=== PATIENT | female | born 1935 | race American Indian/Alaskan Native ===

== ENCOUNTER 2019-01-08 07:42 | Day surgery (SDC) | payer MEDICARE, MEDICAID | END 2019-01-08 12:32 | disposition home or self-care (01) | LOC: C.ENDO 07:42 | DX: K92.1 Melena (principal) ==

== ENCOUNTER 2019-01-19 06:47 | Day surgery (SDC) | payer MEDICARE, MEDICAID ==
[2019-01-18 10:40] VITALS: BMI 29.6
[2019-01-19] MEDS ORDERED: Propofol 10 mg/ml Inj (20 ML) ONE (08:49)
[2019-01-19] MEDS ORDERED: Lactated Ringer's 1,000 ML IV ONE (08:50)
[2019-01-19] MEDS ORDERED: Lidocaine Hydrochloride 5 ML INJ ONE (08:50)
--- NOTE | 2019-01-19 08:52 | CP.SDSHP ---
Same Day Surgery H & P - History Proposed Procedure: COLONSCOPY Pre-Op Diagnosis: SEE NOTES - Previous Medical/Surgical History Cardiac: Hypertension, ASHD/CAD Pain: 4.Moderate Pain - Allergies Allergies: Allergies No Known Allergies Allergy (Verified 01/19/19 07:31) - Physical Exam General Appearance: N Vital Signs: Vital Signs 01/19/19 07:32 Temperature 97.2 F L Pulse Rate 72 Respiratory 19 Rate Blood Pressure 145/66 O2 Sat by Pulse 99 Oximetry Mental Status: Alert & Oriented x3 Neuro: WNL Heart: Other Lungs: WNL GI: Other - {Optional Preform as Required} Breast: WNL Abdomen: Other Rectal: Other Integument: WNL : WNL Ortho: WNL ENT: WNL - Impression Pt. Evaluated Today:Candidate for Anesthesia & Procedure: Yes - Date & Time Time: 08:52 Short Stay Discharge - Short Stay Discharge Admitting Diagnosis/Reason for Visit: RECTAL BLEEDING / COLONIC POLYPS Disposition: HOME/ ROUTINE
[2019-01-19] MEDS ORDERED: Etomidate 20 mg/10ml Inj IV ONE (08:53)
[2019-01-19 09:40] VITALS: TEMP 97.3; O2SAT 100
[2019-01-19] MEDS ORDERED: Belladonna-Phenobarbital PO ONE (09:45)
[2019-01-19 10:53] VITALS: BP 145/67; PULSE 65; RESP 16
== END 2019-01-19 10:51 | disposition home or self-care (01) ==
LOC: C.ENDO 06:47
PROVIDERS: ATTEND Specialist
DX: K62.5 Hemorrhage of anus and rectum (principal); Z86.010 Personal history of colon polyps; K57.90 Diverticulosis of intestine, part unspecified, without perforation or abscess without bleeding; K64.8 Other hemorrhoids; K57.30 Diverticulosis of large intestine without perforation or abscess without bleeding
CPT/HCPCS: 45378; 88305; J2704; J7120